=== PATIENT | male | born 1980 | race Caucasian/White ===

== ENCOUNTER 2020-03-02 06:56 | Emergency (ER) | payer BC, OTHER ==
[2020-03-02 07:05] VITALS: BP 148/93; PULSE 82
[2020-03-02] MEDS ORDERED: Amoxicillin/Clavulanate K 875-125 MG Tab PO ONE (07:19)
[2020-03-02] MEDS ORDERED: Diphtheria,Pertussis(Acell),Tetanus Vaccine 0.5 ML Syringe IM ONE (07:19)
[2020-03-02] MEDS ORDERED: Rabies Vaccine (Avian) 2.5 Unit Inj Kit IM ONE (07:19)
[2020-03-02] MEDS ORDERED: Rabies Immune Globulin/PF 300 UNIT/ML 5 ML SDV IM ONE (07:21)
--- NOTE | 2020-03-02 07:24 | EDM.PDOC ---
ED HPI GENERAL MEDICAL PROBLEM - General Chief Complaint: Bite:Animal, Insect Stated Complaint: CAT BITE Time Seen by Provider: 03/02/20 07:10 Source of Information: Reports: Patient History Limitations: Reports: No Limitations - History of Present Illness INITIAL COMMENTS - FREE TEXT/NARRATIVE: Patient comes emergency department today with complaints of a cat bite to his right foot. Just prior to arrival the patient was outside in his sandals when a neighbor's cat came by and bit him on the top of the foot that was unprovoked. His last tetanus shot was in 2007. Initially he was unsure of the vaccination status of the cat although during his visit he was able to verify with the vet that the cat is up-to-date on its rabies vaccinations. He has no fever chills or other concerns. Right Foot Pain Score (Numeric/FACES): 4 - Related Data Allergies Allergy/AdvReac Type Severity Reaction Status Date / Time strawberry Allergy Rash Verified 05/09/19 19:43 Home Meds: Home Meds Clobetasol [Clobetasol Propionate 0.05%] 15 gm TOP BID PRN 02/13/15 [History] Fexofenadine [Melissa] 180 mg PO DAILY PRN 02/13/15 [History] Triamcinolone Acetonide [Nasacort] 1 spray NS DAILY 02/13/15 [History] Amoxicillin/Potassium Clav [Augmentin 875-125 Tablet] 1 each PO BID #10 tablet 03/02/20 [Rx] Past Medical History - Past Health History Medical/Surgical History: Denies Medical/Surgical History Other Dermatologic History: Excema ED ROS GENERAL - Review of Systems Review Of Systems: Comprehensive ROS is negative, except as noted in HPI. ED EXAM, ANIMAL BITE - Physical Exam Exam: See Below Exam Limited By: No Limitations General Appearance: Alert, WD/WN, No Apparent Distress Respiratory/Chest: No Respiratory Distress Cardiovascular: Normal Peripheral Pulses, Regular Rate, Rhythm Extremities: No: Normal Inspection (On the very top of the patient's foot at the distal metatarsal of the first and second foot there is a superficial abrasion x2 both are about 1 cm in length. There is no erythema induration swelling. He is able to flex and extend at all the joints of the toes appropriately.) Neurological: Alert, Oriented Psychiatric: Normal Affect, Normal Mood Skin Exam: Normal Color, Warm/Dry Course - Vital Signs Last Recorded V/S: Last Vital Signs Temp 97.5 F 03/02/20 07:03 Pulse 82 03/02/20 07:03 Resp 16 03/02/20 07:03 BP 148/93 H 03/02/20 07:03 Pulse Ox 100 03/02/20 07:03 - Orders/Labs/Meds Orders: Active Orders 24 hr Category Date Time Status Vaccines to be Administered [RC] PER UNIT ROUTINE Care 03/02/20 07:20 Active Meds: Medications Discontinued Medications Generic Name Dose Route Start Last Admin Trade Name Camila PRN Reason Stop Dose Admin Amoxicillin/Clavulanate Potassium 1 tab 03/02/20 07:19 03/02/20 08:12 Augmentin 875 Mg/125 Mg PO 03/02/20 07:20 1 tab ONETIME ONE Administration Diphtheria/Tetanus/Acell Pertussis 0.5 ml 03/02/20 07:19 03/02/20 08:12 Adacel IM 03/02/20 07:20 0.5 ml .ONCE ONE Administration Rabies Immune Globulin 1,600 unit 03/02/20 07:21 Hyperrab 300 Unit/Ml Vial IM 03/02/20 07:22 ONETIME ONE Rabies Vaccine 2.5 unit 03/02/20 07:19 Rabavert IM 03/02/20 07:20 .ONCE ONE - Re-Assessments/Exams Free Text/Narrative Re-Assessment/Exam: 03/02/20 14:18 tetanus and augmentin Departure - Departure Time of Disposition: 07:45 Disposition: Home, Self-Care 01 Clinical Impression: Cat bite of foot Qualifiers: Encounter type: initial encounter Laterality: right Qualified Code(s): S91.351A - Open bite, right foot, initial encounter - Discharge Information Prescriptions: Amoxicillin/Potassium Clav [Augmentin 875-125 Tablet] 1 each PO BID #10 tablet Instructions: Animal Bite, Adult, [id number] Referrals: PCP,None [Primary Care Provider] - Forms: ED Department Discharge Additional Instructions: Cleanse the cat bite twice daily with soap and water. Bacitracin and bandage until healed. You verified that the cat was up to date on vaccinations. So no rabies vaccines. Watch for signs of infection. Augmentin 1 tablet twice daily for the next 5 days. RX sent to [facility]. First dose given in the ED. Return to the ED if new or worsening symptoms. Follow up with PCP if any concerns or issues. Sepsis Event Note (ED) - Evaluation Sepsis Screening Result: No Definite Risk - Focused Exam Vital Signs: Vital Signs Temp Pulse Resp BP Pulse Ox 03/02/20 07:03 97.5 F 82 16 148/93 H 100 - My Orders Last 24 Hours: My Active Orders 03/02/20 07:20 Vaccines to be Administered [RC] PER UNIT ROUTINE - Assessment/Plan Last 24 Hours: My Active Orders 03/02/20 07:20 Vaccines to be Administered [RC] PER UNIT ROUTINE
== END 2020-03-02 08:20 | disposition home or self-care (01) ==
LOC: VM.ED 06:56
DX: S91.351A Open bite, right foot, initial encounter (principal); Z91.018 Allergy to other foods; Z23 Encounter for immunization; W55.01XA Bitten by cat, initial encounter
CPT/HCPCS: 90471; 90715; 99283; A9270